=== PATIENT | male | born 1995 | race Caucasian/White ===

== ENCOUNTER 2019-04-05 21:30 | Emergency (ER) | payer BC ==
[~2019-04-05] VITALS: Ht 177.8 cm; Wt 52.2 kg
[2019-04-05 21:45] VITALS: BP 118/84
--- NOTE | 2019-04-05 21:45 | NUR ---
ED Nurse Note: pt walked in to ED for C/O asthma attack since 1945. pt states he is having SOB and had episode of N/V. pt also states he is coughing a lot lately and feels like he has a lot of mucus. pt is alert x4.
[2019-04-05] MEDS: Albuterol ud Inhalation HHN SCH ×3 (22:15→22:44)
[2019-04-05] MEDS: Ipratropium 0.02% Inh Soln 2.5ml UD HHN SCH ×3 (22:15→22:44)
--- NOTE | 2019-04-05 22:16 | NUR ---
ED Nurse Note: pt is in bed receiving breathing tx at this time. sp02 98%. All due mediction is given at this time. mother is by bedside.
[2019-04-05] MEDS ORDERED: PREDNISONE50 MG ORAL (22:52)
--- NOTE | 2019-04-05 22:52 | Emergency Room Report ---
History of Present Illness General Chief Complaint: Asthma Source: Patient Present Illness HPI 23-year-old male history of asthma presents with cough, chest pain that started just prior to arrival, he took his inhaler which helped a little bit, he endorses some chest tightness, shortness of breath, severity was moderate, constant, patient denies any dyspnea on exertion, patient presents for evaluation Allergies: Coded Allergies: LATEX (Verified Allergy, Unknown, 04/05/19) PENICILLINS (Verified Allergy, Unknown, 04/05/19) Patient History Past Medical History: see triage record Reviewed Nursing Documentation: PMH: Agreed; PSxH: Agreed Nursing Documentation-PMH Hx Asthma: Yes Review of Systems All Other Systems: negative except mentioned in HPI Physical Exam Vital Signs Date Time Temp Pulse Resp B/P (MAP) Pulse Ox O2 Delivery O2 Flow Rate FiO2 04/05/19 21:35 97.5 98 16 120/84 (96) 96 Room Air 04/05/19 21:45 96 Sp02 EP Interpretation: reviewed, normal General Appearance: well appearing, no apparent distress, alert Head: normocephalic, atraumatic Eyes: bilateral eye PERRL, bilateral eye EOMI ENT: uvula midline, moist mucus membranes Neck: supple, thyroid normal, supple/symm/no masses Respiratory: no respiratory distress, no retraction, no accessory muscle use, decreased breath sounds, wheezing - Mild Cardiovascular #1: normal peripheral pulses, regular rate, rhythm, no edema, no gallop, no murmur Gastrointestinal: non tender, soft, no guarding, no rebound Musculoskeletal: normal inspection Neurologic: alert, oriented x3 Psychiatric: mood/affect normal Skin: no rash, warm/dry Medical Decision Making Diagnostic Impression: Primary Impression: Asthma attack Qualified Codes: J45.41 - Moderate persistent asthma with (acute) exacerbation ER Course 23-year-old male presents with most likely an acute asthma exacerbation, patient given duo nebs, steroids, differential diagnosis includes pneumonia, URI Reevaluation 10:51 PM, patient is feeling better, steroids given, duo nebs given Disposition home with return precautions Chest X-Ray Diagnostic Results Chest X-Ray Diagnostic Results : Chest X-Ray Ordered: Yes # of Views/Limited/Complete: 1 View Indication: Shortness of Breath EP Interpretation: Yes Interpretation: other - Large lung volumes Impression: Other - Large lung volumes Electronically Signed by: Dmitry Quinonez MD Last Vital Signs Date Time Temp Pulse Resp B/P (MAP) Pulse Ox O2 Delivery O2 Flow Rate FiO2 04/05/19 22:44 75 20 100 Room Air 21 72 20 100 04/05/19 21:45 97.5 118/84 Disposition: HOME, SELF-CARE Condition: Stable Scripts Ipratropium [place] 0.5MG/2.5ML (IPRATROPIUM BROMIDE 0.5MG/2.5ML) 0.2 Mg/1 Ml Solution 0.5 MG HHN Q6H PRN for Shortness of Breath, #28 EA Prov: Dmitry Quinonez MD 04/05/19 Albuterol Sulfate* (ALBUTEROL SULFATE HHN*) 2.5 Mg/3 Ml Vial.neb 2.5 MG HHN Q4H PRN for Shortness of Breath, #50 VIAL Prov: Dmitry Quinonez MD 04/05/19 Prednisone* (PREDNISONE*) 50 Mg Tablet 50 MG ORAL DAILY, #4 TAB 0 Refills Prov: Dmitry Quinonez MD 04/05/19 Referrals: [facility] Patient Instructions: Asthma, Adult Additional Instructions: The patient was provided with discharge instructions, notified to follow-up with a primary care doctor and or specialist in the next 24-48 hours, and to return to the ED if they have worsening of their symptoms. Please note that this report is being documented using DRAGON technology. This can lead to erroneous entry secondary to incorrect interpretation by the dictating instrument. Dmitry Quinonez MD Apr 05, 2019 22:52
[2019-04-05 23:04] VITALS: BP 109/84
--- NOTE | 2019-04-05 23:04 | NUR ---
ER DISCHARGE NOTE: Patient is cleared to be discharged per ERMD, pt is aox4, on room air, with stable vital signs. pt was given dc and prescription instructions, pt was able to verbalize understanding, pt id band removed without complications. pt is able to ambulate with steady gait. pt took all belongings.
[2019-04-05] MEDS ORDERED: ALBUTEROL2.5 MG/3 M HHN (23:05)
[2019-04-05] MEDS ORDERED: IPRATROPIU0.2 MG/1 M HHN (23:05)
--- NOTE | 2019-04-06 11:43 | Diagnostic Imaging Report ---
Indication: Cough Comparison: None A single view chest radiograph was obtained. Findings: Cardiomediastinal appearance is within normal limits for age. The lungs are clear. Pulmonary vascularity is appropriate. The diaphragmatic contour is smooth and costophrenic angles are sharp. No pleural effusions are identified. The bones are unremarkable. Impression: No acute findings
== END 2019-04-05 23:04 | disposition home or self-care (01) ==
LOC: EMR 21:48
DX: J45.41 Moderate persistent asthma with (acute) exacerbation (principal); Z91.040 Latex allergy status; Z88.0 Allergy status to penicillin
CPT/HCPCS: 71045; 94640; 99284; J7512